=== PATIENT | female | born 1985 | race Caucasian/White ===

== ENCOUNTER 2017-04-16 10:41 | Emergency (ER) | payer SELFPAY ==
[2017-04-16 10:42] VITALS: BMI 29.0
--- NOTE | 2017-04-16 11:36 | ED PDOC ---
HPI: General Adult Time Seen by Provider: 04/16/17 11:33 Chief Complaint (Nursing): Cough, Cold, Congestion Chief Complaint (Provider): FEVER/COUGH History Per: Patient (31 Y/O FEMALE 28 WEEK GESTATION HERE COUGH/FEVER X 2 DAYS. NO VOMITING/DIARRHEA. HAS ILL CHILD AT HOME WITH SIMILAR SYMPTOMS. SEEN BY [facility] TODAY WITH ULTRASOUND DOCUMENTIG IUP.) Past Medical History Reviewed: Historical Data, Nursing Documentation, Vital Signs Vital Signs: Last Vital Signs Temp 98 F 04/16/17 11:13 Pulse 98 H 04/16/17 11:13 Resp 20 04/16/17 11:13 BP 100/56 L 04/16/17 11:13 Pulse Ox 100 04/16/17 11:13 - Family History Family History: States: Unknown Family Hx - Home Medications Home Medications: Ambulatory Orders Medication Instructions Recorded Pnv95/Ferrous Fumarate/FA 1 tab PO DAILY 08/07/15 [ Vitamins] Ferrous Sulfate [Feosol] 325 mg PO BID #60 tab 08/09/15 Ibuprofen [Motrin Tab] 600 mg PO Q6 PRN #0 tab 08/09/15 Multimineral/Multivitamin 1 tab PO DAILY #0 tab 08/09/15 [Therapeutic-M Tab] Sennosides A and B [Senokot Tab] 17.2 mg PO HS #0 tab 08/09/15 Oseltamivir [Tamiflu] 75 mg PO BID #9 cap 04/16/17 - Allergies Allergies/Adverse Reactions: Allergies Allergy/AdvReac Type Severity Reaction Status Date / Time No Known Allergies Allergy Verified 08/23/15 10:34 Review of Systems ROS Statement: Except As Marked, All Systems Reviewed And Found Negative Constitutional: Positive for: Fever Respiratory: Positive for: Cough Physical Exam - Reviewed Nursing Documentation Reviewed: Yes Vital Signs Reviewed: Yes - Physical Exam Appears: Positive for: Well, Non-toxic, No Acute Distress Head Exam: Positive for: ATRAUMATIC, NORMAL INSPECTION, NORMOCEPHALIC Skin: Positive for: Normal Color, Warm, DRY Eye Exam: Positive for: EOMI, Normal appearance, PERRL ENT: Positive for: Normal ENT Inspection Neck: Positive for: Normal, Painless ROM Cardiovascular/Chest: Positive for: Regular Rate, Rhythm Respiratory: Positive for: CNT, Normal Breath Sounds Gastrointestinal/Abdominal: Positive for: Normal Exam, Bowel Sounds, Soft Back: Positive for: Normal Inspection Extremity: Positive for: Normal ROM Neurologic/Psych: Positive for: Alert, Oriented - ECG O2 Sat by Pulse Oximetry: 100 - Progress ED Course And Treament: TAMIFLU 75MG X 1 DOSE Disposition - Clinical Impression Clinical Impression: Influenza - Patient ED Disposition Is Patient to be Admitted: No - Disposition Disposition: Routine/Home Disposition Time: 11:37 Condition: FAIR Prescriptions: Oseltamivir [Tamiflu] 75 mg PO BID #9 cap Instructions: Flu, Adult (DC) Forms: [employer] (Panamanian), [facility] ED School/Work Excuse Print Language: INDONESIAN
[2017-04-16 11:50] VITALS: BP 128/78; PULSE 78; RESP 18; TEMP 97.8; O2SAT 98
== END 2017-04-16 12:22 | disposition home or self-care (01) ==
LOC: H.ER 10:41
DX: J11.1 Influenza due to unidentified influenza virus with other respiratory manifestations (principal); O99.513 Diseases of the respiratory system complicating pregnancy, third trimester; Z3A.28 28 weeks gestation of pregnancy

== ENCOUNTER 2017-07-24 00:23 | Inpatient (IN) | payer MEDICAID, SELFPAY ==
[2017-07-24 00:42] VITALS: BMI 25.4
[2017-07-24] MEDS ORDERED: Lidocaine 2% Inj (20ml) ONE (01:06)
[2017-07-24] MEDS ORDERED: Oxytocin 30 units/LR 500ML 30 U/500 ML BAG IV SCH (01:15)
[2017-07-24 01:21] LABS: BASO # 0.1 K/uL (0.0-0.2); BASO % 0.7 % (0.0-2.0); EOS # 1.1 K/uL (0.0-0.7); EOS % 10.5 % (0.0-4.0); HEMOGLOBIN 11.7 g/dL (12.0-16.0); LYMPH # 1.6 K/uL (1.0-4.3); LYMPH % 16.2 % (20.0-40.0); MEAN CELL VOLUME 90.7 fl (81.0-99.0); MEAN CORPUSCULAR HEMOGLOBIN 31.2 pg (27.0-31.0); MEAN CORPUSCULAR HGB CONC 34.4 g/dL (33.0-37.0); MEAN PLATELET VOLUME 9.3 fl (7.2-11.7); MONO # 0.5 K/uL (0.0-0.8); MONO % 4.8 % (0.0-10.0); NEUT # 6.8 K/uL (1.8-7.0); NEUT % 67.8 % (50.0-75.0); RBC 3.74 Mil/uL (3.80-5.20); RED CELL DISTRIBUTION WIDTH 14.3 % (11.5-14.5); WHITE BLOOD COUNT 10.1 K/uL (4.8-10.8)
[2017-07-24] MEDS ORDERED: Benzocaine/Menthol SPRAY TOP PRN ×2 (05:35→12:46)
--- NOTE | 2017-07-24 06:30 | OBHP ---
Datetime: 07/24/2017 01:10 IP Admit Plan: Admit to unit; Initiate labor protocol Pelvic Type - PN: Adequate Extremities - PN: Normal Abdomen - PN: Normal Back - PN: Normal Breast - PN: Not Done Lungs - PN: Normal Heart - PN: Normal Thyroid - PN: Not Done Neurologic - PN: Normal HEENT - PN: Normal General - PN: Normal FHR - Baseline A Provider: 140 EGA AdmitDate IP: 39.6 Vital Signs Provider: Reviewed; Within Normal Limits IP Indication for Induction: Not Applicable IP Chief Complaint: Uterine contractions NICHD Variability Prov Fetus A: Moderate 6-25bpm NICHD Accel Fetus A IP Provider: [id number] FHR Category Provider Fetus A: Category I NICHD Decel Fetus A IP Provider: None Dilatation, Provider: 5 Effacement, Provider: 90 Station, Provider: -1 Genitourinary Exam: Normal DTRs - PN: Not Done Datetime: 07/24/2017 01:00 IP Adm Impression: Term, intrauterine ; Active labor; Intact Membranes Admit Comment, IP Provider: 31 yo EGA 39.6 presents with uterine contractions. She reports c tx began yesterday at 11:00 and then progressed every 5 minutes 5 hours prior to admission. Reports slight vaginal bleed when wiping after voiding 4 hours prior to admission but since [facility] ed. Denies: active VB, LOF, Reports: FM, and mild dysuria ROS: Denies: dizziness, headaches, blurred vision, CP, N/V. PNC: Dr. Evangelina Jacob; eval: Via echo: L Ventricular Echogenic focus; Cavum septi p ellucidi; and Nuchal fold at upper limit of normal; Trisomy 21 negative. Pt reports having GBS screen ing, however wasnt told about significant findings. obhx: 2016 M uncomplicated pmhx: none famhx: none sochx: denies: smoking, alcohol, illicit drugs surg: none NKDA Meds: none Gen: AAOx3 in acute distress with each contraction Cardiac: S1 S2 no murmurs Resp: Clear to auscultation bilaterally Abdo: gravid, nontender, acitve bowel sounds HIV: neg from january; HBSAB: NEG; GBS: UNKNOWN; RUBELLA: IM; GC/C: UNKNOWN, RPR: NEG, 31 yo IUP 39.6 presensts with contractions -admit to L_D for progression of labor -labs: CBC, T_S, HIV -Enema order Case dw Dr. Rosa Luevano MD PGY1 OB Hospitalist note: With PGY1, I saw and examiend this patient. She has an incomplete copy of pr enatal chart...no GBS report...Acitve labor - observe progress; pain managemtn discussed but she does not want anything at this time...agree with note MAHNDO Presentation-Admit: Vertex Membranes, Provider: Intact Pool Provider: Negative
[2017-07-24] MEDS ORDERED: Multivitamin With Minerals Tab PO SCH (09:00)
[2017-07-24 18:08] LABS: MEAN CELL VOLUME 90.9 fl (81.0-99.0); MEAN CORPUSCULAR HEMOGLOBIN 30.6 pg (27.0-31.0); MEAN CORPUSCULAR HGB CONC 33.7 g/dL (33.0-37.0); RBC 2.34 Mil/uL (3.80-5.20)
[2017-07-24 18:44] LABS: HEMOGLOBIN 7.2 g/dL (12.0-16.0)
[2017-07-25] MEDS: Multivitamin With Minerals Tab PO SCH (08:32)
[2017-07-25 17:16] LABS: HEMOGLOBIN 7.4 g/dL (12.0-16.0); MEAN CELL VOLUME 92.1 fl (81.0-99.0); MEAN CORPUSCULAR HEMOGLOBIN 30.3 pg (27.0-31.0); MEAN CORPUSCULAR HGB CONC 32.8 g/dL (33.0-37.0); RBC 2.44 Mil/uL (3.80-5.20); RED CELL DISTRIBUTION WIDTH 14.4 % (11.5-14.5); WHITE BLOOD COUNT 10.7 K/uL (4.8-10.8)
[2017-07-26] MEDS: Multivitamin With Minerals Tab PO SCH (08:58)
[2017-07-26] MEDS ORDERED: Lansinoh for Breast Feeding Mothers TP ONE (09:31)
--- NOTE | 2017-07-26 10:02 | OBDCSUM ---
Datetime: 07/26/2017 07:10 Discharged to, Provider: Home Follow up at, Provider: Disch Instr Activity: Normal activity Disch Instr Diet: Regular Discharge Instructions, Provider: Routine instructions given Discharge Diagnosis, Provider: Term Delivered Discharge Time: 07/26/2017 10:00 Follow up in weeks, Provider: 6 weeks PP Disch Referrals: None Contraception discussed, Prov: Yes Disch Activity Restrictions: No lifting; Nothing in vagina - [place], tampons, douche Discharge Comment, Provider: Discharge Summary DOA: 07/24/2017 EGA: 39.6 Diagnosis: NVD Term Risk factors: none Summary of : 31 yo F L_D summary DOL: 07/24/2017 at 04:57 NVD NB: F : 9/9 Weight: 3425 g PP summary No serious complications during PP. Lochia= menses, mild pain, controlled with medications Rubella immune Blood type: O+ CBC pp: 7.2/21.3 on FeSO4 and improved to hgb:7.4; pt declined blood transfusion Discharge Date: 07/26/2017 Time 10:00 AM Discharge Instructions: -encourage -Ibuprofen for pain PRN -Ambulate as tolerated -f/u NB visit 3-7 days w/ glove cuffer and PP visit 6 weeks with OB Case d/w OB attending --- Fred Luevano MD PGY-1 Contraception after Delivery: Control Pill/Patch
--- NOTE | 2017-07-26 10:02 | OBPPN ---
Datetime: 07/26/2017 07:10 PP Pain Prov: Within normal limits PP Nausea Prov: Denies PP Flatus Prov: Yes PP BM Prov: Yes PP Breasts Prov: Not Done PP Heart Prov: Normal PP Lungs Prov: Normal PP Abdomen/Uterus Prov: Normal PP Lochia Prov: Normal PP Vulva/Perineum Prov: Not Done PP CVA Tenderness Prov: Normal PP Extremities Prov: Normal PP C/S Incision Prov: Not Applicable PP Progress Prov: Normal PP Impression Prov: Normal progression PP Plan Prov: Discharge PP Progress Note Prov: PPD 2 S: 31 yo s/p NVD on 07/24/2017 at 04:57. Pt. is seen and examined at bedside this AM. No significant overnight events. Pt reports occasional abdominal pain, but well controlled with pain med s. Pt is ambulating without any difficulties. Breast feeding baby. Tolerating PO diet. Lochia is marquis lar to light menses in volume. Voiding freely, with bowel movement and passing gas per rectum. Denies fever, chills, diarrhea, nausea, vomiting, chest pain, dyspnea, and dizziness. O: VS: stable GEN: NAD Cardio: S1S2, no M/G/R Resp: clear breath sounds b/l Abdomen: BS+, NT, Uterus is firm and at the level of the umbilicus. EXT: No edema, calves nontender NEURO/PSYCHI: AAOx3, no grossly focal deficit, preserved affect and mood. Assessment/Plan: 31 yo s/p NVD on 07/24/2017 at 04:57. Pt remains afebrile, tolerating emma n with medication, tolerating PO intake, doing well on PPD2. OOB with caution SCDs for DVT prophylaxis, pt ambulating Ibuprofen 600mg for pain. Colace 100mg PO BID/Senokot 17.2 mg qHS for constipation Encourage and ambulating CBC post-delivery: H/H 7.2/21.3; hgb improved to 7.4 Pt. asymptomatic at this time with normal vital signs started on FeSO4 325mg PO BID Offered transfusion; at bedside; pt declined. Anticipated d/c to home, 07/26/2017. Case dw OB attending --- Fred Luevano MD PGY-[address] Benton: I have evaluated the patient independently and I agree with the above IP PP Procedures: None Vital Signs Provider PP: Reviewed; Within Normal Limits Datetime: 07/24/2017 22:00 IP PP Procedures Comments: Pt declined trasfusion
[2017-07-26 18:24] VITALS: BP 99/59; PULSE 80; RESP 20; TEMP 97.7
== END 2017-07-26 13:52 | disposition home or self-care (01) | DRG 373 ==
LOC: H.EROB2 00:23 → H.L&D 01:03 → H.OB/GYN 09:33
PROVIDERS: ADMIT Obstetrics & Gynecology; ATTEND Obstetrics & Gynecology
PROC: 10E0XZZ Delivery of Products of Conception, External Approach (ICD-10-PCS; principal; 2017-07-24)
PROC: 4A1HXCZ Monitoring of Products of Conception, Cardiac Rate, External Approach (ICD-10-PCS; 2017-07-24)
DX: O80 Encounter for full-term uncomplicated delivery (principal); Z37.0 Single live birth; Z3A.39 39 weeks gestation of pregnancy; K59.00 Constipation, unspecified